=== PATIENT | male | born 1970 | race Caucasian/White ===

== ENCOUNTER 2022-01-24 09:27 | Emergency (ER) | payer MEDICARE, MEDICAID, SELFPAY ==
[2022-01-24 09:29] VITALS: BP 134/87; PULSE 83; RESP 18; TEMP 36.9; O2SAT 100; BMI 26.4
--- NOTE | 2022-01-24 09:46 | CT_ITS ---
STUDY: CT SOFT TISSUE NECK WITH CONTRAST REASON FOR EXAM: Male, 51 years old. Sore throat r/o abscess. Left earache. RADIATION DOSAGE (If Supplied By Facility): CTDIvol = ( 18.10 ) mGy, DLP = ( 623.99 ) mGycm TECHNIQUE: The patient was scanned in a multi-detector CT scanner. High resolution transaxial imaging was performed following intravenous administration of IV 75mL Isovue-370. Sagittal and coronal images were reconstructed. Individualized dose optimization techniques were used for this CT. COMPARISON: Comparison is made with prior study dated 10/16/2016. FINDINGS: Normal bilateral parotid glands. Normal bilateral supervisor sandblaster spaces. Normal bilateral parapharyngeal spaces. Normal bilateral carotid spaces. Normal bilateral sublingual and submandibular glands and spaces. Normal visualized nasopharynx. Normal retropharyngeal space. Normal perivertebral space. There is diffuse enlargement of both palatine tonsils worse on the left side. Within the left tonsils, there is a 1.1 cm focal area of decreased attenuation in keeping with possible early abscess. The swelling extends into the oropharynx on the left side. The visualized tongue, tongue base and oropharynx are normal. The visualized cervical lymph nodes (levels I-) are within normal size limits, and maintain normal morphology. There is no demonstrated solid or cystic mass lesion. There is no abnormal contrast enhancement. Normal epiglottis, bilateral vallecula and hypopharynx. The pre-epiglottic and paraglottic adipose spaces are normal. Normal visualized bilateral piriform sinuses, aryepiglottic folds, vocal cords, and arytenoid-cricoid articulations. Normal subglottic trachea. Normal bilateral lobes of the thyroid gland. Normal visualized pulmonary apices. Normal visualized paranasal sinuses. Normal visualized cervical spine. CT/Soft Tissue Neck WITH Contrast IMPRESSION: Enlargement of the palatine tonsils bilaterally more prominent on the left side with a focal 1.1 cm early abscess formation in the anterior aspect of the left tonsils. Electronically Signed: Miguel Garcia MD at 10:44 EDT ,
--- NOTE | 2022-01-24 09:49 | EDS_ITS ---
HPI <ABILIO Vieyra - Last Filed: 01/24/22 10:53> History of Present Illness Chief Complaint: Sore Throat Narrative Narrative: 51-year-old male presents with sore throat progressively worsening over the last 5 days. Pain is now radiating pain to his left ear and left side of his neck. He is having difficulty swallowing due to pain. 2 days ago he was seen in urgent care and had a negative COVID test and was prescribed a Z-Costa. The next day he saw his primary care and had a negative strep test. Sore throat is worse today. He does have a history of peritonsillar abscess that required drainage before. He denies fever or chills. No difficulty breathing or handling secretions. PFSH <ABILIO Vieyra Last Filed: 01/24/22 10:53> PFSH Medical History no medical history Home Medications clindamycin HCl 150 mg capsule 450 mg PO TID 10 days #90 caps 01/24/22 [Rx Last Taken Unknown] Allergy/AdvReac Type Severity Reaction Status Date / Time cat dander Allergy Other Verified 01/24/22 09:32 dog dander Allergy Other Verified 01/24/22 09:32 Penicillins Allergy Hives Verified 01/24/22 09:32 Family History no significant family his Surgical History no surgical history Social History Smoking Status: Former smoker ROS <ABILIO Vieyra Last Filed: 01/24/22 10:53> ROS ED ROS Narrative Constitutional: Negative for fever, chills, malaise. Eyes: Negative for visual change. ENT: Positive for sore throat. Negative for ear pain, rhinorrhea. CVS: Negative for palpitations, chest pain, syncope. Respiratory: Negative for shortness of breath, cough, orthopnea. GI: Negative for abdominal pain, nausea, vomiting. : Negative for dysuria, hematuria or frequency. Neuro: Negative for headache, motor/sensory dysfunction. Skin: Negative for rash, abscess, or wound. Musc: Negative for joint pain, swelling, trauma. Heme: Negative for easy bruising, bleeding, lymphadenopathy. EXAM <ABILIO Vieyra Last Filed: 01/24/22 10:53> Physical Exam Narrative Exam Narrative: CONST: Patient sitting in no acute distress. EYES: Normal inspection. ENT: Significant bilateral tonsillar swelling touching the uvula, no exudate, handling oral secretions, sublingual space is soft. NECK: Normal inspection. Trachea midline, no palpable masses or significant swelling. RESP: No respiratory distress, CTAB. CVS: Regular rate and rhythm, no murmur, no gallop. SKIN: Color normal, no rash, warm, dry, intact. EXTREMITIES: Normal appearance, no pedal edema. NEURO: Oriented x4. PSYCH: Normal affect. Const Vital Signs: 01/24/22 09:29 01/24/22 10:07 Temperature 98.4 F 98.4 F Temperature Source Temporal Temporal Pulse Rate 83 83 Respiratory Rate 18 18 Blood Pressure 134/87 H 134/87 H Blood Pressure Mean 102 102 Pulse Ox 100 100 Oxygen Delivery Method Room Air Room Air <Dr. Nathan Nelson MD - Last Filed: 01/24/22 11:59> Physical Exam Const Vital Signs: 01/24/22 09:29 01/24/22 10:07 Temperature 98.4 F 98.4 F Temperature Source Temporal Temporal Pulse Rate 83 83 Respiratory Rate 18 18 Blood Pressure 134/87 H 134/87 H Blood Pressure Mean 102 102 Pulse Ox 100 100 Oxygen Delivery Method Room Air Room Air MDM <ABILIO Vieyra - Last Filed: 01/24/22 10:53> [facility] Narrative Medical decision making narrative: Patient presents with progressively worsening sore throat. He appears well and nontoxic. Vital signs within normal limits. Bilateral tonsils significantly enlarged and erythematous. Slight swelling of the uvula with no clear deviation. Airway is patent and he is handling oral secretions. No signs of dental infection. Trachea midline. Heart regular and lungs clear. I am concerned for an early peritonsillar abscess so he was treated with Decadron and labs and CT will be obtained. White count is 10.[address] shows left 1.1 cm left tonsillar abscess and the attending performed I&D. I recommended he stop the Z-Costa and start clindamycin (penicillin allergic). Patient was given ENT referral and return precautions and discharged in stable condition. Diagnoses 1. Sore throat 2. Left peritonsillar abscess- I&D Lab Data Attestation: I reviewed the patient's lab results. Labs: Laboratory Results - last 24 hr 01/24/22 01/24/22 10:05 10:05 WBC 10.8 RBC 4.97 Hgb 14.3 Hct 42.2 MCV 84.9 MCH 28.8 MCHC 33.9 RDW Std Deviation 41.1 RDW Coeff of Asa 13.2 Plt Count 259 MPV 9.3 Immature Gran % (Auto) 0.400 Neut % (Auto) 83.2 H Lymph % (Auto) 7.0 L [place] % (Auto) 9.1 Eos % (Auto) 0.1 Baso % (Auto) 0.2 Absolute Neuts (auto) 9.0 H Absolute Lymphs (auto) 0.75 L Nucleated RBC % 0 Sodium 137 Potassium 4.6 Chloride 105 Carbon Dioxide 28.0 Anion Gap 4 L BUN 23 H Creatinine 1.17 Estim Creat Clear Calc 77.77 Est GFR (MDRD) Af Amer 84 Est GFR (MDRD) Non-Af 69 BUN/Creatinine Ratio 19.7 Glucose 120 H Calcium 9.7 Radiography Diagnostic Testing: Clinical Impression(s) from Imaging Studies Soft Tissue Neck CT 01/24/22 09:46 IMPRESSION: Enlargement of the palatine tonsils bilaterally more prominent on the left side with a focal 1.1 cm early abscess formation in the anterior aspect of the left tonsils. Electronically Signed: Miguel Garcia MD at 10:44 EDT , <Dr. Nathan Nelson MD - Last Filed: 01/24/22 11:59> [facility] MDM Narrative Medical decision making narrative: Patient presents with progressively worsening sore throat. He appears well and nontoxic. Vital signs within normal limits. Bilateral tonsils significantly enlarged and erythematous. Slight swelling of the uvula with no clear deviation. Airway is patent and he is handling oral secretions. No signs of dental infection. Trachea midline. Heart regular and lungs clear. I am concerned for an early peritonsillar abscess so he was treated with Decadron and labs and CT will be obtained. White count is 10.[address] shows left 1.1 cm left tonsillar abscess and the attending performed I&D. I recommended he stop the Z-Costa and start clindamycin (penicillin allergic). Patient was given ENT referral and return precautions and discharged in stable condition. Diagnoses 1. Sore throat 2. Left peritonsillar abscess- I&D I have personally performed a face to face assessment of the patient and have reviewed the RIVKA Note. I performed a substantive portion of the visit including all aspects of the following. My jones findings include: History is of worsening sore throat and difficulty swallowing. Patient was seen at urgent care and treated with azithromycin. Patient has prior history of peritonsillar abscess. Patient reports change in voice. Patient reports significant difficulty swallowing. He denies fever or chills. He denies drooling. He complains of pain anterior neck. Exam is remarkable for significantly swollen uvula with evidence of angioedema. He has significant swelling of the soft tissue left greater than right. There appears to be evidence of peritonsillar cellulitis. There is no anterior cervical lymphadenopathy. Trachea is midline. There is no inspiratory expiratory stridor. Heart is regular without murmur, gallop or rub. Lungs are clear to auscultation. Neurologic exam is nonfocal. Medical Decision Making with patient having significant swelling CT was ordered. CT reveals a left peritonsillar abscess. Patient was treated with clindamycin. Patient underwent needle aspirate. Other additions or changes: Procedure performed by me. Patient had needle aspirate of left peritonsillar abscess. 2 cc of purulent material was aspira manny. Patient reported improvement. Patient has an appointment to see Dr. Scott Khoury tomorrow at 0915. Lab Data Labs: Laboratory Results - last 24 hr 01/24/22 01/24/22 10:05 10:05 WBC 10.8 RBC 4.97 Hgb 14.3 Hct 42.2 MCV 84.9 MCH 28.8 MCHC 33.9 RDW Std Deviation 41.1 RDW Coeff of Asa 13.2 Plt Count 259 MPV 9.3 Immature Gran % (Auto) 0.400 Neut % (Auto) 83.2 H Lymph % (Auto) 7.0 L Po[place] % (Auto) 9.1 Eos % (Auto) 0.1 Baso % (Auto) 0.2 Absolute Neuts (auto) 9.0 H Absolute Lymphs (auto) 0.75 L Nucleated RBC % 0 Sodium 137 Potassium 4.6 Chloride 105 Carbon Dioxide 28.0 Anion Gap 4 L BUN 23 H Creatinine 1.17 Estim Creat Clear Calc 77.77 Est GFR (MDRD) Af Amer 84 Est GFR (MDRD) Non-Af 69 BUN/Creatinine Ratio 19.7 Glucose 120 H Calcium 9.7 Radiography Diagnostic Testing: Clinical Impression(s) from Imaging Studies Soft Tissue Neck CT 01/24/22 09:46 IMPRESSION: Enlargement of the palatine tonsils bilaterally more prominent on the left side with a focal 1.1 cm early abscess formation in the anterior aspect of the left tonsils. Electronically Signed: Miguel Garcia MD at 10:44 EDT , Discharge Plan Triage Chief Complaint: Sore Throat ED Midlevel Provider: Anna Marie Shin ED Provider: Nathan Nelson Dx/Rx/DC Orders Clinical Impression: Abscess, peritonsillar Instructions: ED Peritonsillar Abscess Prescriptions: New clindamycin HCl 150 mg capsule 450 mg PO TID 10 Days Qty: 90 0RF Primary Care Provider: Tuan Trejo Referrals: Praneeth Boyle MD [STAFF PHYSICIAN] - [facility] Doctor,Out of [NON-STAFF] - Activity Restrictions/Additional Instructions: Stop the z-costa and start clindamycin. Take tylenol or ibuprofen every 6 hours as needed. Disposition Disposition: Home, Self Care Discharge Date/Time: 01/24/22 11:28
[2022-01-24 10:07] VITALS: BP 134/87; PULSE 83; RESP 18; TEMP 36.9; O2SAT 100
[2022-01-24] MEDS: dexAMETHasone 10 MG/ML Vial PO.IVFORM (10:08)
[2022-01-24 10:18] LABS: Absolute Lymphocyte Count 0.75 X10^3/uL (0.83-4.51); Basophil# 0.02 X10^3/uL; Basophil% 0.2 % (0-1); Eosinophil# 0.01 X10^3/uL; Eosinophils% 0.1 % (0-5); Hematocrit 42.2 % (40-54); Hemoglobin 14.3 g/dL (13.0-16.5); Lymphocyte # 0.75 X10^3/ul (0.83-4.51); Mean Corp Hgb Conc 33.9 g/dL (32-36); Mean Corpuscular Hgb 28.8 pg (27.0-32.0); Mean Corpuscular Volume 84.9 fL (80-94); Mean Platelet Vol. 9.3 fl (6.2-12.0); Monocyte# 0.98 X10^3/uL; Monocyte% 9.1 % (0-10); NRBC Flagged by Analyzer 0 % (0-5); Neutrophil # 8.98 X10^3/uL (2.7-7.7); Neutrophil % 83.2 % (47-70); Platelet Count 259 K/mm3 (150-450); RBC Distribution Width CV 13.2 % (11.6-14.6); RBC Distribution Width SD 41.1 fl (35.1-43.9); Red Blood Count 4.97 M/mm3 (4.6-6.2); White Blood Count 10.8 K/mm3 (4.4-11.0)
[2022-01-24 10:29] LABS: Anion Gap 4 (5-15); BUN 23 mg/dL (7-18); BUN/Creat Ratio 19.7 RATIO (10-20); Calcium,Total 9.7 mg/dL (8.5-10.1); Chloride 105 mmol/L (98-107); Creatinine, Serum 1.17 mg/dL (0.70-1.30); EST Glomerular Filtration Rate 69 mL/min (>60); Est Glom Filt Rate - Afr Amer 84 mL/min (>60); Estimated Creatinine Clearance 77.77 ml/min; Glucose 120 mg/dL (74-106); Potassium 4.6 mmol/L (3.5-5.1); Sodium Level 137 mmol/L (136-145)
[2022-01-24] MEDS: Clindamycin HCl 150 MG Capsule 450 MG PO (10:47)
[2022-01-24] MEDS: Tetracaine/Benzocaine/Butamben 1 APPLIC TOPICAL (10:48)
--- NOTE | 2022-01-24 11:27 | ED.RN ---
dr mata at bedside with jennifer for peritonsilar drainage. 2cc puss removed with syringe. pt glen well. mother at bedside
== END 2022-01-24 11:28 | disposition home or self-care (01) ==
PROVIDERS: Physician Assistant; Emergency Provider Emergency Medicine; PCP Student in an Organized Health Care Education/Training Program; Visit Provider Emergency Medicine
DX: J36 Peritonsillar abscess (principal); Z87.891 Personal history of nicotine dependence; H92.02 Otalgia, left ear
CPT/HCPCS: 42700; 70491; 80048; 85025; 99284; Q9967; A4216

== ENCOUNTER → 2022-06-12 | Outpatient (CLI) | payer MEDICARE, MEDICAID, SELFPAY | END | disposition home or self-care (01) | LOC: LABSPEC 15:12 | PROVIDERS: PCP Student in an Organized Health Care Education/Training Program; Visit Provider Otolaryngology | DX: J32.9 Chronic sinusitis, unspecified (principal) | CPT/HCPCS: 87070; 87205 ==

== ENCOUNTER 2022-10-21 19:13 | Emergency (ER) | payer MEDICARE, MEDICAID, SELFPAY ==
[2022-10-21] VITALS (8 sets, daily range): BP systolic 159–178; BP diastolic 66–82; PULSE 72–98; RESP 17–18; TEMP 36.1–37.7; O2SAT 97–100; BMI 27.0
--- NOTE | 2022-10-21 19:25 | CT_ITS ---
INDICATION: peritonsillar abscess EXAMINATION: CT NECK WITH CONTRAST - CT Soft Tissue Neck W/ Contrast Injection TECHNIQUE: Helically acquired images were obtained of the neck following IV contrast. A radiation dose optimization technique was used for this scan. IV Contrast dosage and agent: 100 mL of Isovue-300. COMPARISON: January 24, 2022 CT neck. FINDINGS: NASOPHARYNX: Unremarkable. SUPRAHYOID NECK: Asymmetric enlargement left tonsils with early developing rim enhancement measuring roughly 20 x 17 mm. Subtle central hypodensity consistent with early developing abscess. There is mild midline shift from left to right. No significant airway narrowing. INFRAHYOID NECK: Unremarkable larynx, hypopharynx, and supraglottis. THYROID: No focal lesions. SALIVARY GLANDS: Parotid and submandibular glands are normal in appearance. LYMPH NODES: No definite lymphadenopathy however level to a lymph nodes are asymmetrically enlarged on the left compared to the right, likely reactive. VASCULAR STRUCTURES: Mild carotid bulb calcifications on the right with less than 25% luminal narrowing. VISUALIZED PORTIONS OF THE ORBITS, PARANASAL SINUSES, MASTOID AIR CELLS AND SKULL BASE: Unremarkable. BONES: Significant degenerative endplate changes and anterior osteophyte formation C5-6 and C6-7. Minimal facet arthropathy. THORACIC INLET: Clear lung apices. Intracranial contents included in the [id number] are within normal limits. CT/Soft Tissue Neck WITH Contrast IMPRESSION: Developing left peritonsillar abscess roughly 17 x 20 mm, relatively similar in appearance compared to CT neck January 24, 2022. Electronically Signed: Praful Null DO at 21:03 EDT ,
--- NOTE | 2022-10-21 19:26 | EDS_ITS ---
HPI <ABILIO Vieyra - Last Filed: 10/21/22 21:30> History of Present Illness Chief Complaint: Sore Throat Narrative Narrative: 52-year-old male states he gets recurrent peritonsillar abscesses and has required drainage about 5 times in the past. He developed a sore throat 4 days ago worsening today especially on the left. He is able to swallow some fluids. He denies fever chills but has malaise. No vomiting or diarrhea. He has taken multiple negative COVID test. He went to urgent care and they sent him here to rule out an abscess. Patient states he sees an ENT doctor but does not remember their name. PFSH <ABILIO Vieyra Last Filed: 10/21/22 21:30> [facility] Home Medications clindamycin HCl 150 mg capsule 450 mg PO TID 10 days #90 caps 10/21/22 [Rx Last Taken Unknown] Allergy/AdvReac Type Severity Reaction Status Date / Time cat dander Allergy Other Verified 10/21/22 19:27 dog dander Allergy Other Verified 10/21/22 19:27 Penicillins Allergy Hives Verified 10/21/22 19:27 prednisone AdvReac Upset Verified 10/21/22 19:27 Stomach Surgical History (Updated 10/21/22 @ 19:28 by Amada Green) History of parathyroidectomy Social History Smoking Status: Former smoker ROS <ABILIO Vieyra - Last Filed: 10/21/22 21:30> ROS ED ROS Narrative Constitutional: Positive for malaise. Negative for fever, chills. ENT: Positive for sore throat. CVS: Negative for pain. Respiratory: Negative for shortness of breath, cough. GI: Negative for nausea or vomiting. Neuro: Negative for headache. EXAM <ABILIO Vieyra Last Filed: 10/21/22 21:30> Physical Exam Narrative Exam Narrative: CONST: Patient sitting in no acute distress. EYES: Normal inspection. ENT: Moist mucous membranes, pharyngeal erythema with significantly enlarged left tonsil abutting the uvula with no deviation. No trismus, sublingual space is soft. Handling secretions appropriately. NECK: Normal inspection. Trachea midline. No stridor. RESP: No respiratory distress, CTAB. CVS: Regular rate and rhythm, no murmur, no gallop. SKIN: Color normal, no rash, warm, dry, intact. EXTREMITIES: Normal appearance, no pedal edema. NEURO: Oriented x4. PSYCH: Normal affect. Const Vital Signs: 10/21/22 19:13 10/21/22 19:34 10/21/22 19:50 Temperature 97 F L 98.9 F Temperature Source Temporal Temporal Pulse Rate 73 74 76 Respiratory Rate 18 18 18 Blood Pressure 159/79 H 160/80 H 162/82 H Blood Pressure Mean 105 106 108 Pulse Ox 100 100 98 Oxygen Delivery Method Room Air Room Air Room Air 10/21/22 20:24 10/21/22 20:50 10/21/22 21:14 Temperature 99.9 F H 99.2 F H 99.9 F H Temperature Source Temporal Temporal Temporal Pulse Rate 72 98 86 Respiratory Rate 18 18 18 Blood Pressure 178/82 H 167/70 H 162/74 H Blood Pressure Mean 114 102 103 Pulse Ox 100 99 97 Oxygen Delivery Method Room Air Room Air Room Air 10/21/22 21:24 10/21/22 22:09 Temperature Temperature Source Pulse Rate 82 Respiratory Rate 18 17 Blood Pressure 162/74 H 160/66 H Blood Pressure Mean 97 Pulse Ox 99 Oxygen Delivery Method Room Air <Dr. Juan Manuel Verduzco, DO - Last Filed: 10/21/22 22:44> Physical Exam Const Vital Signs: 10/21/22 19:13 10/21/22 19:34 10/21/22 19:50 Temperature 97 F L 98.9 F Temperature Source Temporal Temporal Pulse Rate 73 74 76 Respiratory Rate 18 18 18 Blood Pressure 159/79 H 160/80 H 162/82 H Blood Pressure Mean 105 106 108 Pulse Ox 100 100 98 Oxygen Delivery Method Room Air Room Air Room Air 10/21/22 20:24 10/21/22 20:50 10/21/22 21:14 Temperature 99.9 F H 99.2 F H 99.9 F H Temperature Source Temporal Temporal Temporal Pulse Rate 72 98 86 Respiratory Rate 18 18 18 Blood Pressure 178/82 H 167/70 H 162/74 H Blood Pressure Mean 114 102 103 Pulse Ox 100 99 97 Oxygen Delivery Method Room Air Room Air Room Air 10/21/22 21:24 10/21/22 22:09 Temperature Temperature Source Pulse Rate 82 Respiratory Rate 18 17 Blood Pressure 162/74 H 160/66 H Blood Pressure Mean 97 Pulse Ox 99 Oxygen Delivery Method Room Air [facility] <ABILIO Vieyra - Last Filed: 10/21/22 21:30> [facility] Narrative Medical decision making narrative: Gathered from: Patient and significant other Patient having 4 days of sore throat with worsening pain. He appears well and nontoxic. Afebrile with normal vital signs. He does have enlarged tonsils worse on the left. Touching the uvula but there is no deviation. No distress or drooling. No dysphonia. Normal heart and lung sounds. Rapid strep is negative. Patient given IV fluids, Decadron, and clindamycin due to penicillin allergy. CBC shows normal white count of 10.6. BMP unremarkable. CT scan of the neck shows asymmetric enlargement of the left tonsil with early developing abscess. No significant airway narrowing. Patient is feeling improved after Decadron. I discussed the case with on-call ENT, Dr. Boyle, who agreed with early outpatient follow-up in office this week. Patient was prescribed clindamycin for home and discharged in stable condition. Torrential diagnosis include strep pharyngitis, peritonsillar abscess, deep space infection Lab Data Attestation: I reviewed the patient's lab results. Labs: Laboratory Results - last 24 hr 10/21/22 10/21/22 19:40 19:40 WBC 10.6 RBC 4.89 Hgb 13.7 Hct 41.1 MCV 84.0 MCH 28.0 MCHC 33.3 RDW Std Deviation 40.9 RDW Coeff of Asa 13.3 Plt Count 260 MPV 9.1 Immature Gran % (Auto) 0.400 Neut % (Auto) 79.5 H Lymph % (Auto) 10.7 L Mcintosh % (Auto) 8.3 Eos % (Auto) 0.8 Baso % (Auto) 0.3 Absolute Neuts (auto) 8.4 H Absolute Lymphs (auto) 1.13 Nucleated RBC % 0 Sodium 138 Potassium 4.6 Chloride 107 Carbon Dioxide 28.0 Anion Gap 3 L BUN 28 H Creatinine 1.24 Estim Creat Clear Calc 72.53 Est GFR (MDRD) Af Amer 78 Est GFR (MDRD) Non-Af 65 BUN/Creatinine Ratio 22.6 H Glucose 90 Calcium 9.4 Radiography Diagnostic Testing: Clinical Impression(s) from Imaging Studies Soft Tissue Neck CT 10/21/22 19:25 IMPRESSION: Developing left peritonsillar abscess roughly 17 x 20 mm, relatively similar in appearance compared to CT neck January 24, 2022. Electronically Signed: Praful DO Tennille at 21:03 EDT , <Dr. Juan Manuel Verduzco DO - Last Filed: 10/21/22 22:44> [facility] MDM Narrative Medical decision making narrative: Gathered from: Patient and significant other Patient having 4 days of sore throat with worsening pain. He appears well and nontoxic. Afebrile with normal vital signs. He does have enlarged tonsils worse on the left. Touching the uvula but there is no deviation. No distress or drooling. No dysphonia. Normal heart and lung sounds. Rapid strep is negative. Patient given IV fluids, Decadron, and clindamycin due to penicillin allergy. CBC shows normal white count of 10.6. BMP unremarkable. CT scan of the neck shows asymmetric enlargement of the left tonsil with early developing abscess. No significant airway narrowing. Patient is feeling improved after Decadron. I discussed the case with on-call ENT, Dr. Boyle, who agreed with early outpatient follow-up in office this week. Patient was prescribed clindamycin for home and discharged in stable condition. Differential diagnosis include strep pharyngitis, peritonsillar abscess, deep space infection Attending note: Patient seen and evaluated with organizational psychologist. I perform my own [id number] evaluation. I agree with the plan of work-up. Worsening throat pain and 4 days history of multiple peritonsillar abscess most recent in January of last year. He is followed by Dr. Weston. Has recommended tonsillectomy, no fevers. Pain with swallowing. Exam fullness posterior pharynx and uvula midline on my exam. No trismus. Patient's history multiple peritonsillar abscess work-up initiated white count 10.6 she is treated with dexamethasone and IV clindamycin due to penicillin allergy CT scan per radiology interpreted myself there was enlarged asymmetric tonsils 20 mm however only small developing abscess. Discussed with covering ENT Dr. Boyle for close follow-up and return precautions. Meds to bed with clindamycin. Clinically was improving on reevaluation. Strep test was negative. Lab Data Labs: Laboratory Results - last 24 hr 10/21/22 10/21/22 19:40 19:40 WBC 10.6 RBC 4.89 Hgb 13.7 Hct 41.1 MCV 84.0 MCH 28.0 MCHC 33.3 RDW Std Deviation 40.9 RDW Coeff of Asa 13.3 Plt Count 260 MPV 9.1 Immature Gran % (Auto) 0.400 Neut % (Auto) 79.5 H Lymph % (Auto) 10.7 L Mcintosh % (Auto) 8.3 Eos % (Auto) 0.8 Baso % (Auto) 0.3 Absolute Neuts (auto) 8.4 H Absolute Lymphs (auto) 1.13 Nucleated RBC % 0 Sodium 138 Potassium 4.6 Chloride 107 Carbon Dioxide 28.0 Anion Gap 3 L BUN 28 H Creatinine 1.24 Estim Creat Clear Calc 72.53 Est GFR (MDRD) Af Amer 78 Est GFR (MDRD) Non-Af 65 BUN/Creatinine Ratio 22.6 H Glucose 90 Calcium 9.4 Radiography Diagnostic Testing: Clinical Impression(s) from Imaging Studies Soft Tissue Neck CT 10/21/22 19:25 IMPRESSION: Developing left peritonsillar abscess roughly 17 x 20 mm, relatively similar in appearance compared to CT neck January 24, 2022. Electronically Signed: Praful Null DO at 21:03 EDT , Discharge Plan Triage Chief Complaint: Sore Throat ED Midlevel Provider: Anna Marie Shin ED Provider: Juan Manuel Verduzco Dx/Rx/DC Orders Clinical Impression: Peritonsillar abscess Instructions: ED Peritonsillar Abscess Prescriptions: New clindamycin HCl 150 mg capsule 450 mg PO TID 10 Days Qty: 90 0RF Primary Care Provider: Tuan Trejo Referrals: Scott Marte MD [Med Staff - Active Staff] - Tuan Trejo MD [Primary Care Provider] - Activity Restrictions/Additional Instructions: You were given a steroid here called Decadron. Take clindamycin and call the ENT office tomorrow to be seen next week. Back to the ER if symptoms worsen. Disposition Disposition: Home, Self Care Discharge Date/Time: 10/21/22 22:10
[2022-10-21 19:46] LABS: Absolute Lymphocyte Count 1.13 X10^3/uL (0.83-4.51); Absolute Neutrophil Count 8.4 X10^3/uL (2.0-7.7); Basophil# 0.03 X10^3/uL; Basophil% 0.3 % (0-1); Eosinophil# 0.09 X10^3/uL; Eosinophils% 0.8 % (0-5); Hematocrit 41.1 % (40-54); Hemoglobin 13.7 g/dL (13.0-16.5); Lymphocyte # 1.13 X10^3/ul (0.83-4.51); Lymphocyte % 10.7 % (19-41); Mean Corp Hgb Conc 33.3 g/dL (32-36); Mean Platelet Vol. 9.1 fl (6.2-12.0); Monocyte# 0.88 X10^3/uL; Monocyte% 8.3 % (0-10); NRBC Flagged by Analyzer 0 % (0-5); Neutrophil # 8.42 X10^3/uL (2.7-7.7); Neutrophil % 79.5 % (47-70); Platelet Count 260 K/mm3 (150-450); RBC Distribution Width CV 13.3 % (11.6-14.6); RBC Distribution Width SD 40.9 fl (35.1-43.9); Red Blood Count 4.89 M/mm3 (4.6-6.2); White Blood Count 10.6 K/mm3 (4.4-11.0)
[2022-10-21 20:03] LABS: Anion Gap 3 (5-15); BUN 28 mg/dL (7-18); BUN/Creat Ratio 22.6 RATIO (10-20); Calcium,Total 9.4 mg/dL (8.5-10.1); Chloride 107 mmol/L (98-107); Creatinine, Serum 1.24 mg/dL (0.70-1.30); EST Glomerular Filtration Rate 65 mL/min (>60); Est Glom Filt Rate - Afr Amer 78 mL/min (>60); Estimated Creatinine Clearance 72.53 ml/min; Glucose 90 mg/dL (74-106); Potassium 4.6 mmol/L (3.5-5.1); Sodium Level 138 mmol/L (136-145)
[2022-10-21] MEDS: 0.9% Normal Saline 1,000 ML 999 ML IV (20:13)
[2022-10-21] MEDS: dexAMETHasone 10 MG/ML Vial IV (20:14)
[2022-10-21] MEDS: Clindamycin 600 MG/50 ML BAG 100 MG IV (20:20)
--- NOTE | 2022-10-21 20:29 | ED.RN ---
PER ABILIO DUMAS BLOOD CULTURES NOT NEEDED PRIOR TO ANTIBIOTIC ADMINISTRATION.
== END 2022-10-21 22:10 | disposition home or self-care (01) ==
PROVIDERS: Physician Assistant; Emergency Provider Emergency Medicine; PCP Student in an Organized Health Care Education/Training Program; Visit Provider Emergency Medicine
DX: J36 Peritonsillar abscess (principal); Z87.891 Personal history of nicotine dependence
CPT/HCPCS: 70491; 80048; 85025; 87880; 96361; 96374; 96375; 99283; J7030; Q9967; A4216

== ENCOUNTER → 2024-08-31 | Outpatient (CLI) | payer MEDICARE, MEDICAID, SELFPAY ==
--- NOTE | 2024-08-31 13:48 | CT_ITS ---
PROCEDURE: SOFT TISSUE NECK WITH CONTRAST REASON FOR EXAM: 4 month history of right neck mass. TECHNIQUE: CT of the soft tissues of the neck from the orbits to the upper mediastinum with intravenous contrast. CONTRAST: 79 cc of Isovue 370. COMPARISON: Comparison is made with prior study dated May 04, 2024. FINDINGS: Airway: Midline and patent. Salivary glands: Unremarkable. Lymph nodes: Small benign-appearing cervical lymph nodes. Thyroid: Unremarkable. Vasculature: Carotid arteries and internal jugular veins are unremarkable. Orbits: Unremarkable at visualized levels. Paranasal sinuses and mastoids: Grossly clear at visualized levels. Lung apices: Clear. Upper mediastinum: Visualized mediastinum is unremarkable. Bones: Unremarkable. CT/Soft Tissue Neck WITH Contrast IMPRESSION: No dominant mass is seen. One or more dose reduction techniques were used (e.g., Automated exposure contr ol, adjustment of the mA and/or kV according to patient size, use of iterative reconstruction technique). Reading Location: [facility]
== END | disposition home or self-care (01) ==
LOC: CT 13:46
PROVIDERS: Referring Provider Otolaryngology; Visit Provider Otolaryngology
DX: R22.1 Localized swelling, mass and lump, neck (principal)
CPT/HCPCS: 70491; Q9967

== ENCOUNTER → 2024-09-21 | Outpatient (CLI) | payer MEDICARE, MEDICAID, SELFPAY | END | disposition home or self-care (01) | LOC: LABSPEC 15:09 | DX: J02.9 Acute pharyngitis, unspecified (principal) | CPT/HCPCS: 87070 ==

== ENCOUNTER 2024-11-11 11:38 | Outpatient (RCR) | payer SELFPAY | END 2024-12-04 23:59 | LOC: NS 11:38 | DX: Z71.3 Dietary counseling and surveillance (principal) ==